=== PATIENT | male | born 1980 | race Caucasian/White ===

== ENCOUNTER 2017-08-30 17:17 | Emergency (ER) | payer BC ==
[2017-08-30 17:36] VITALS: BP 126/72; PULSE 83; TEMP 98.1; BMI 24.3
--- NOTE | 2017-08-30 17:36 | PDOC ---
Rapid Medical Evaluation Time Seen by Provider: 08/30/17 17:33 Medical Evaluation: Allergies Allergy/AdvReac Type Severity Reaction Status Date / Time No Known Allergies Allergy Verified 08/30/17 17:33 12 17:33 I have performed a brief in-person evaluation of this patient. The patient presents with a chief complaint of: R lower back x 1 month. seen by PMD and dx w/ muscular pain but has not taken anything for pain. No trauma. No n /v/f/c or sxs Pertinent physical exam findings:Unremarkable I have ordered the following: nothing The patient will proceed to the ED for further evaluation.
--- NOTE | 2017-08-30 18:28 | PDOC ---
History of Present Illness - General History Source: Patient Exam Limitations: No Limitations - History of Present Illness Initial Comments: 08/30/17 19:02 The patient is a 37 year old male, presents to the emergency department with a complaint of right sided back pain for a month, worse in the last two days. Denies any fall, trauma, twists or injuries in the past month. Patient has been evaluated by his PCP for his back pain an initially told it was muscular. Since his visit with his primary, patient states that pain has progressed from an intermittent pain to a constant pain. The pain waxes and weans in severity, provoked with movements, laying down on the right side and pressing in the area. Denies the use of OTC medications or heating pads. Pain does not radiate. Denies fever, chills or other muscle pains. Denies urinary incontinence, dysuria or hematuria. Denies bowel incontinence. Denies saddle anesthesia. Patient reports a family history of kidney stones. Patient admits to working out frequently and often deadlifts 135 pounds. Patient is employed [place] a [place] [place] <Vitaly Munguia - Last Filed: 08/30/17 19:02> <Nuvia Chen - Last Filed: 08/30/17 21:04> - General Chief Complaint: Back Pain Stated Complaint: PAIN, ACUTE Time Seen by Provider: 08/30/17 17:33 Past History <Vitaly Munguia - Last Filed: 08/30/17 19:02> - Past Medical History COPD: No - Surgical History Abdominal Surgery: Yes Appendectomy: Yes - Immunization History Immunization Up to Date: Yes - Suicide/Smoking/Psychosocial Hx Smoking Status: No Smoking History: Never smoked Have you smoked in the past 12 months: No Number of Cigarettes Smoked Daily: 0 Cigars Per Day: 0 Information on smoking cessation initiated: No Hx Alcohol Use: Yes (monthly) Drug/Substance Use Hx: No Substance Use Type: None <Nuvia Chen - Last Filed: 08/30/17 21:04> - Past Medical History Allergies/Adverse Reactions: Allergies Allergy/AdvReac Type Severity Reaction Status Date / Time No Known Allergies Allergy Verified 08/30/17 17:33 Home Medications: Ambulatory Orders Cyclobenzaprine HCl [Flexeril -] 10 mg PO HS #7 tablet 08/30/17 Ibuprofen 800 mg PO TID #30 tablet 08/30/17 Review of Systems - Review of Systems Able to Perform ROS?: Yes Comments:: 08/30/17 19:02 CONSTITUTIONAL: Absent: fever, no chills, no fatigue EYES: Absent: visual changes ENT: Absent: ear pain, no sore throat CARDIOVASCULAR: Absent: chest pain, no palpitations RESPIRATORY: Absent: cough, no SOB GI: Absent: incontinence, abdominal pain, no nausea, no vomiting, no constipation, no diarrhea GENITOURINARY: Absent: incontinence, dysuria, no frequency, no hematuria MUSKULOSKELETAL: Present: Right sided back pain Absent: no arthralgia, no myalgia SKIN: Absent: rash NEURO: Absent: headache, numbness or tingling Is the patient limited Slovenian proficient: No <Vitaly Munguia - Last Filed: 08/30/17 19:02> *Physical Exam - Vital Signs Last Vital Signs Temp Pulse Resp BP Pulse Ox 98.1 F 83 18 126/72 100 08/30/17 17:34 08/30/17 17:34 08/30/17 17:34 08/30/17 17:34 08/30/17 17:34 - Physical Exam Comments: 08/30/17 19:03 GENERAL: Well-appearing, well-nourished. No apparent distress. MUSCULOSKELETAL: Negative CVA bilaterally. Tender to palpation in the back at the right 12th rib level EXTREMITIES: Normal ROM in all four extremities. No gross deformities. SKIN: Warm, dry. No rash NEUROLOGICAL: Normoreflexic in the upper and lower extremities. Toes are down- going bilaterally. Gait is normal without ataxia. Strength is 5/5 bilaterally in lower extremities. No focal neurological deficits. <Vitaly Munguia - Last Filed: 08/30/17 19:02> - Vital Signs Last Vital Signs Temp Pulse Resp BP Pulse Ox 98.1 F 83 18 126/72 100 08/30/17 17:34 08/30/17 17:34 08/30/17 17:34 08/30/17 17:34 08/30/17 17:34 <Nuvia Chen - Last Filed: 08/30/17 21:04> Medical Decision Making - Medical Decision Making 08/30/17 19:44 A portion of this document was transcribed under my direct supervision by the scribe. I agree with the documentation as written. Medical decision making entered by me and is as followed: Pt. is a 37 y/o M with no PMH who presents to the ED with 1 month of R mid back pain. It is exacerbated by movement. Pt. is concerned for possible Kidney stone. Less likely kidney stone as pain is positional and made worse by movement. Will obtain UA and give ibuprofen at this time. 08/30/17 20:57 Urine is negative. No blood in the urine, unlikely kidney stone. Will d/c home at this time with instructions to treat back pain. Pt. to f/u with primary care doctor. <Nuvia Chen - Last Filed: 08/30/17 21:04> *DC/Admit/Observation/Transfer - Attestations Scribe Attestion: 08/30/17 19:06 Documentation prepared by Vitaly Munguia, acting as medical associate for LINDA Zeng <Vitaly Munguia - Last Filed: 08/30/17 19:02> - Discharge Dispostion Admit: No <Nuvia Chen - Last Filed: 08/30/17 21:04> Diagnosis at time of Disposition: Back pain Qualifiers: Back pain location: thoracic back pain Chronicity: unspecified Back pain laterality: right Qualified Code(s): M54.6 - Pain in thoracic spine - Discharge Dispostion Disposition: HOME Condition at time of disposition: Good - Prescriptions Prescriptions: Cyclobenzaprine HCl [Flexeril -] 10 mg PO HS #7 tablet Ibuprofen 800 mg PO TID #30 tablet - Referrals Referrals: Cosmo Borjas [Primary Care Provider] - - Patient Instructions Printed Discharge Instructions: Low Back Pain Additional Instructions: You have upper back pain. Please take 800 mg of Motrin 3 times a day to help with the symptoms. Your also prescribed Flexeril. This is a muscle relaxer. Please take this medication before you go to sleep at night to help break the spasm for one week. Do not drive after taking this medication as it may make you sleepy. You may use heat on the area to help with the pain. Avoid heavy lifting for the next week to see if her symptoms will improve. Follow up with her primary care doctor this week. Return to the emergency department if you have worsening back pain, shortness of breath, numbness and tingling down her legs, bladder or bowel incontinence, or any changes in your symptoms. - Post Discharge Activity Forms/Work/School Notes: Back to Work
[2017-08-30] MEDS ORDERED: IBUPROFEN 400 MG TABLET (FP) PO ONE ×2 (19:31→19:36)
[2017-08-30 20:12] LABS: URINE APPEARANCE CLEAR; URINE BILIRUBIN NEGATIVE (NEGATIVE); URINE BLOOD NEGATIVE (NEGATIVE); URINE COLOR LTYELLOW; URINE GLUCOSE (UA) NEGATIVE (NEGATIVE); URINE KETONE NEGATIVE (NEGATIVE); URINE NITRITE NEGATIVE (NEGATIVE); URINE PROTEIN NEGATIVE (NEGATIVE); URINE UROBILINOGEN NEGATIVE mg/dL (0.2-1.0)
[2017-08-30 22:42] LABS: URINE LEUK ESTERASE Negative (NEGATIVE)
== END 2017-08-30 21:09 | disposition home or self-care (01) ==
LOC: JERFT 17:17
DX: M54.6 Pain in thoracic spine (principal)
CPT/HCPCS: 81003; 87086; 99281-25

== ENCOUNTER 2023-12-02 20:39 | Emergency (ER) | payer BC, OTHER ==
[2023-12-02 20:45] VITALS: BP 103/66; PULSE 80; RESP 18; TEMP 97.9; BMI 27.3
[2023-12-02] MEDS ORDERED: METOCLOPRAMIDE HCL INJECTION 10 MG/2 ML VIAL ONE (21:32)
[2023-12-02] MEDS ORDERED: ACETAMINOPHEN INJECTION 100 ML IVPB ONE (21:32)
[2023-12-02] MEDS ORDERED: KETOROLAC TROMETHAMINE 15 MG/ML VIAL ONE (21:33)
[2023-12-02] MEDS: METOCLOPRAMIDE HCL INJECTION 10 MG/2 ML VIAL IVPUSH ONE (21:45)
[2023-12-02] MEDS: SODIUM CHLORIDE 1,000 ML IV STA (21:45)
[2023-12-02] MEDS: KETOROLAC TROMETHAMINE 15 MG/ML VIAL IVPUSH ONE (21:45)
[2023-12-02] MEDS: ACETAMINOPHEN 1000 MG/100 ML BAG IVPB ONE (21:45)
== END 2023-12-03 02:50 | disposition home or self-care (01) ==
LOC: JER 20:39
PROC: 3E033NZ Introduction of Analgesics, Hypnotics, Sedatives into Peripheral Vein, Percutaneous Approach (ICD-10-PCS; principal; 2023-12-02)
PROC: 3E0333Z Introduction of Anti-inflammatory into Peripheral Vein, Percutaneous Approach (ICD-10-PCS; 2023-12-02)
PROC: 3E033GC Introduction of Other Therapeutic Substance into Peripheral Vein, Percutaneous Approach (ICD-10-PCS; 2023-12-02)
PROC: 3E0337Z Introduction of Electrolytic and Water Balance Substance into Peripheral Vein, Percutaneous Approach (ICD-10-PCS; 2023-12-02)
DX: R51.9 Headache, unspecified (principal)
CPT/HCPCS: 70450-TC; 99284-25; J0131

== ENCOUNTER 2024-03-18 18:21 | Emergency (ER) | payer BC, OTHER ==
[2024-03-18 18:27] VITALS: BP 111/67; PULSE 84; RESP 18; TEMP 98.5; BMI 26.1
[2024-03-18] MEDS ORDERED: LIDOCAINE 4% PATCH TP ONE (18:47)
[2024-03-18] MEDS ORDERED: KETOROLAC TROMETHAMINE 30 MG/1 ML VIAL ONE (18:47)
[2024-03-18] MEDS ORDERED: ACETAMINOPHEN 500 MG TABLET (FP) ONE (18:47)
[2024-03-18] MEDS: ACETAMINOPHEN 500 MG TABLET (FP) PO ONE (18:53)
[2024-03-18] MEDS: LIDOCAINE 4% PATCH TP ONE (18:53)
[2024-03-18] MEDS: KETOROLAC TROMETHAMINE 30 MG/1 ML VIAL IM ONE (18:53)
[2024-03-18] MEDS ORDERED: LIDOCAINE PATCH REMOVAL MC SCH (22:00)
== END 2024-03-18 20:00 | disposition home or self-care (01) ==
LOC: JERFT 18:21
PROC: 3E0133Z Introduction of Anti-inflammatory into Subcutaneous Tissue, Percutaneous Approach (ICD-10-PCS; principal; 2024-03-18)
DX: M62.838 Other muscle spasm (principal); W22.8XXA Striking against or struck by other objects, initial encounter
CPT/HCPCS: 99284-25

== ENCOUNTER 2024-09-01 18:32 | Observation (INO) | payer BC, OTHER ==
[2024-09-01] MEDS ORDERED: ACETAMINOPHEN INJECTION 100 ML ONE (20:13)
[2024-09-01 20:18] LABS: BASO % 1.3 % (0-2.0); EOS % 1.8 % (0-4.5); HEMATOCRIT 36.4 % (35.4-49); HEMOGLOBIN 12.3 GM/dL (11.7-16.9); LYMPH % 30.8 % (8-40); MCH 31.5 pg (25.7-33.7); MCHC 33.8 g/dl (32.0-35.9); MEAN PLT VOLUME 8.1 fl (7.5-11.1); MONO % 11.4 % (3.8-10.2); NEUT % 54.7 % (42.8-82.8); PLATELET COUNT 605 10^3/uL (134-434); RBC 3.91 M/mm3 (4.00-5.60); RDW 13.5 % (11.9-15.9); WHITE BLOOD COUNT 6.2 K/mm3 (4.0-10.0)
[2024-09-01] MEDS: ACETAMINOPHEN 1000 MG/100 ML BAG IVPB ONE (20:18)
[2024-09-01 20:46] LABS: POTASSIUM 4.8 mmol/L (3.5-5.1)
[2024-09-01 20:48] LABS: ALBUMIN 3.1 g/dl (3.4-5.0); CALCIUM 9.2 mg/dL (8.5-10.1); MAGNESIUM 2.3 mg/dL (1.8-2.4)
[2024-09-01 20:49] LABS: BLOOD UREA NITROGEN 20.1 mg/dL (7-18)
[2024-09-01 20:51] LABS: CREATININE 1.3 mg/dL (0.55-1.3)
[2024-09-01 20:53] LABS: BILIRUBIN,TOTAL 0.2 mg/dL (0.2-1); TOT PROT 7.4 g/dl (6.4-8.2)
[2024-09-01] MEDS: SODIUM CHLORIDE 0.9% 500 ML INFUS.BAG IV ONE (21:00)
[2024-09-01 22:17] LABS: N-TERMINAL BNP 16.2 pg/ml (5-125)
[2024-09-01] MEDS ORDERED: ALBUTEROL SO4 2.5/IPRATROPIUM 0.5 INH SOL 3 ML VIAL.NEB. NEB ONE (22:24)
[2024-09-01] MEDS ORDERED: DEXAMETHASONE SOD PHOSPHATE 10 MG/1 ML VIAL ONE (22:24)
[2024-09-01] MEDS: ALBUTEROL SO4 2.5/IPRATROPIUM 0.5 INH SOL 3 ML VIAL.NEB. NEB SCH (22:28)
[2024-09-01] MEDS: DEXAMETHASONE SOD PHOSPHATE 10 MG/1 ML VIAL IVPUSH ONE (22:28)
[2024-09-02] MEDS ORDERED: CEFTRIAXONE 1 G/50 ML PREMIX 50 ML IVPB ONE (02:29)
[2024-09-02] MEDS ORDERED: AZITHROMYCIN 500 MG TABLET ONE (02:54)
[2024-09-02] MEDS: AZITHROMYCIN 250 MG TABLET PO ONE (02:56)
[2024-09-02] MEDS ORDERED: ALBUTEROL SO4 2.5/IPRATROPIUM 0.5 INH SOL 3 ML VIAL.NEB. NEB PRN (03:14)
[2024-09-02] MEDS ORDERED: methylPREDNISolone NA SUCC 40 MG/1 ML VIAL ONE (05:06)
[2024-09-02] MEDS: methylPREDNISolone NA SUCC 40 MG/1 ML VIAL IVPUSH SCH (05:10)
[2024-09-02] MEDS: ALBUTEROL SO4 2.5/IPRATROPIUM 0.5 INH SOL 3 ML VIAL.NEB. NEB SCH (07:45)
[2024-09-02 08:25] LABS: BASO % 0.6 % (0-2.0); HEMATOCRIT 34.6 % (35.4-49); HEMOGLOBIN 12.5 GM/dL (11.7-16.9); MCH 35.4 pg (25.7-33.7); MEAN CELL VOLUME 98.3 fl (80-96); MONO % 2.1 % (3.8-10.2); NEUT % 88.3 % (42.8-82.8); PLATELET COUNT 598 10^3/uL (134-434); RBC 3.52 M/mm3 (4.00-5.60); RDW 13.6 % (11.9-15.9); WHITE BLOOD COUNT 5.6 K/mm3 (4.0-10.0)
[2024-09-02 08:33] LABS: POTASSIUM 4.9 mmol/L (3.5-5.1)
[2024-09-02 08:35] LABS: CALCIUM 9.3 mg/dL (8.5-10.1)
[2024-09-02 08:36] LABS: ALBUMIN 3.2 g/dl (3.4-5.0); BLOOD UREA NITROGEN 11.6 mg/dL (7-18); MAGNESIUM 2.2 mg/dL (1.8-2.4)
[2024-09-02 08:39] LABS: CREATININE 0.9 mg/dL (0.55-1.3); PHOSPHOROUS 2.9 mg/dL (2.5-4.9)
[2024-09-02 08:41] LABS: BILIRUBIN,TOTAL 0.4 mg/dL (0.2-1); TOT PROT 7.7 g/dl (6.4-8.2)
[2024-09-02] MEDS: ENOXAPARIN NA (PORCINE) 40 MG/0.4 ML DISP.SYRIN SQ SCH (09:07)
[2024-09-02 11:34] VITALS: BMI 25.2
[2024-09-02] MEDS: CEFTRIAXONE 1 G/50 ML PREMIX 50 ML IVPB SCH (21:42)
[2024-09-03] MEDS ORDERED: CEFTRIAXONE 1 G/50 ML PREMIX 50 ML IVPB ONE ×2 (02:30)
[2024-09-03 05:39] VITALS: RESP 18
[2024-09-03 08:39] LABS: BASO % 0.3 % (0-2.0); HEMATOCRIT 37.9 % (35.4-49); HEMOGLOBIN 12.7 GM/dL (11.7-16.9); MCHC 33.4 g/dl (32.0-35.9); MEAN CELL VOLUME 92.8 fl (80-96); MEAN PLT VOLUME 8.4 fl (7.5-11.1); MONO % 3.4 % (3.8-10.2); NEUT % 85.3 % (42.8-82.8); PLATELET COUNT 642 10^3/uL (134-434); RBC 4.09 M/mm3 (4.00-5.60); RDW 13.8 % (11.9-15.9); WHITE BLOOD COUNT 12.6 K/mm3 (4.0-10.0)
[2024-09-03 09:05] LABS: POTASSIUM 4.5 mmol/L (3.5-5.1)
[2024-09-03 09:08] LABS: BLOOD UREA NITROGEN 13.7 mg/dL (7-18); CALCIUM 10.1 mg/dL (8.5-10.1)
[2024-09-03 09:11] LABS: CREATININE 0.9 mg/dL (0.55-1.3)
[2024-09-03] MEDS: AZITHROMYCIN IVPB 250 MG in DEXTROSE 5%-WATER - 250 ML IVPB SCH (09:50)
[2024-09-03] MEDS: BUDESONIDE/FORMETEROL FUMARATE 160/4.5 mcg INHALER IH SCH (13:00)
[2024-09-03] MEDS: guaiFENesin/CODEINE 10 ML UNIT-DOSE CUPS PO PRN (13:34)
[2024-09-03] MEDS: methylPREDNISolone NA SUCC 40 MG/1 ML VIAL IVPUSH SCH (17:07)
[2024-09-03] MEDS ORDERED: methylPREDNISolone NA SUCC 40 MG/1 ML VIAL IVPUSH SCH (18:00)
[2024-09-04 10:46] LABS: BASO % 0.4 % (0-2.0); HEMATOCRIT 35.7 % (35.4-49); HEMOGLOBIN 12.4 GM/dL (11.7-16.9); LYMPH % 11.1 % (8-40); MCH 33.6 pg (25.7-33.7); MCHC 34.8 g/dl (32.0-35.9); MEAN CELL VOLUME 96.6 fl (80-96); MEAN PLT VOLUME 8.8 fl (7.5-11.1); MONO % 3.2 % (3.8-10.2); NEUT % 85.3 % (42.8-82.8); PLATELET COUNT 551 10^3/uL (134-434); POTASSIUM 4.4 mmol/L (3.5-5.1); RBC 3.69 M/mm3 (4.00-5.60); RDW 13.7 % (11.9-15.9); WHITE BLOOD COUNT 10.5 K/mm3 (4.0-10.0)
[2024-09-04 11:00] LABS: ALBUMIN 3.2 g/dl (3.4-5.0); CALCIUM 9.9 mg/dL (8.5-10.1)
[2024-09-04 11:02] LABS: PHOSPHOROUS 3.5 mg/dL (2.5-4.9)
[2024-09-04 11:04] LABS: BILIRUBIN,TOTAL 0.4 mg/dL (0.2-1); TOT PROT 7.6 g/dl (6.4-8.2)
[2024-09-04 12:17] VITALS: BP 120/85; PULSE 98; TEMP 98.6
== END 2024-09-04 12:41 | disposition home or self-care (01) ==
LOC: JER 18:32 → JERBED 09-02 04:03 → J5S 09-02 08:27
PROVIDERS: ADMIT Internal Medicine; ATTEND Internal Medicine
PROC: 3E03329 Introduction of Other Anti-infective into Peripheral Vein, Percutaneous Approach (ICD-10-PCS; principal; 2024-09-02)
PROC: 3E033GC Introduction of Other Therapeutic Substance into Peripheral Vein, Percutaneous Approach (ICD-10-PCS; 2024-09-02)
PROC: 3E0337Z Introduction of Electrolytic and Water Balance Substance into Peripheral Vein, Percutaneous Approach (ICD-10-PCS; 2024-09-02)
PROC: 3E013GC Introduction of Other Therapeutic Substance into Subcutaneous Tissue, Percutaneous Approach (ICD-10-PCS; 2024-09-02)
PROC: 3E013GC Introduction of Other Therapeutic Substance into Subcutaneous Tissue, Percutaneous Approach (ICD-10-PCS; 2024-09-02)
PROC: 3E0F7SF Introduction of Other Gas into Respiratory Tract, Via Natural or Artificial Opening (ICD-10-PCS; 2024-09-02)
DX: J18.9 Pneumonia, unspecified organism (principal); J98.01 Acute bronchospasm; R00.0 Tachycardia, unspecified; R06.02 Shortness of breath; R09.02 Hypoxemia
CPT/HCPCS: 0241U-QW; 36415; 71045-TC-FY; 71250-TC; 76604; 80048; 80053; 83735; 83880; 84100; 84484; 85025; 87899; 93005; 93010; 93308; 94010; 94640; 99285-25; G0378; J0131; J1100

== ENCOUNTER 2024-09-14 13:13 | Emergency (ER) | payer BC, OTHER ==
[2024-09-14 13:37] VITALS: BP 104/66; PULSE 88; RESP 16; TEMP 97.6; BMI 25.8
[2024-09-14] MEDS ORDERED: IBUPROFEN 400 MG TABLET (FP) PO ONE (14:42)
[2024-09-14] MEDS: IBUPROFEN 400 MG TABLET (FP) PO ONE (14:45)
[2024-09-14 22:50] LABS: HIV INTERPRETATION NEGATIVE (NEGATIVE)
== END 2024-09-14 16:45 | disposition home or self-care (01) ==
LOC: JER 13:13
DX: M94.0 Chondrocostal junction syndrome [Tietze] (principal)
CPT/HCPCS: 36415; 71046-TC-FY; 84484; 86803; 87389; 93005; 93010; 99285-25

== ENCOUNTER 2025-01-21 19:49 | Emergency (ER) | payer BC, OTHER ==
[2025-01-21 20:08] VITALS: BP 111/70; PULSE 91; RESP 18; TEMP 98.9; BMI 25.9
== END 2025-01-21 22:05 | disposition home or self-care (01) ==
LOC: JER 19:49
DX: J40 Bronchitis, not specified as acute or chronic (principal); R50.9 Fever, unspecified; M79.10 Myalgia, unspecified site; R05.9 Cough, unspecified; R09.81 Nasal congestion
CPT/HCPCS: 0241U-QW; 71046-TC-FY; 99284-25